=== PATIENT | male | born 1970 | race African-American/Black ===

== ENCOUNTER 2016-08-15 21:07 | Emergency (ER) | payer OTHER ==
[~2016-08-15] VITALS: Ht 175.3 cm; Wt 74.8 kg
[2016-08-15 21:12] VITALS: BP 140/84
--- NOTE | 2016-08-15 21:22 | NUR ---
Dr. Gamboa evaluating patient
--- NOTE | 2016-08-15 21:27 | NUR ---
PT [facility] BLS. TAKEN TO BED 7
--- NOTE | 2016-08-15 21:40 | NUR ---
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 DENIES N/V/D; SKIN IS PINK/WARM/DRY; AAOX4 WITH EVEN AND STEADY GAIT; LUNGS CLEAR BL; HR EVEN AND REGULAR; PT DENIES ANY FEVER, CP, SOB, OR COUGH AT THIS TIME; PATIENT STATES PAIN OF 0/10 AT THIS TIME; VSS; PATIENT POSITIONED FOR COMFORT; HOB ELEVATED; BEDRAILS UP X2; BED DOWN. ER MD MADE AWARE OF PT STATUS.
[2016-08-15 21:58] LABS: BASOPHILS # (AUTO) 0.1 K/uL (0.00-0.22); BASOPHILS % (AUTO) 1.8 % (0.0-2.0); EOSINOPHILS # (AUTO) 0.1 K/uL (0-0.4); EOSINOPHILS % (AUTO) 1.4 % (0.0-4.0); HEMATOCRIT 39.6 % (36-52); HEMOGLOBIN 12.9 g/dL (12.0-18.0); LYMPHOCYTES # (AUTO) 2.4 K/uL (2.0-11.5); LYMPHOCYTES % (AUTO) 29.8 % (20.5-51.1); MEAN CORPUSCULAR HEMOGLOBIN 28 pg (27-31); MEAN CORPUSCULAR HGB CONC 33 g/dL (33-37); MEAN CORPUSCULAR VOLUME 85 fL (80-94); MONOCYTES # (AUTO) 0.5 K/uL (0.8-1.0); MONOCYTES % (AUTO) 5.8 % (1.7-9.3); NEUTROPHILS % (AUTO) 61.2 % (42.2-75.2); PLATELET COUNT (AUTO) 341 K/uL (140-450); RED BLOOD CELL COUNT(AUTO) 4.63 MIL/uL (4.20-6.10); RED CELL DISTRIBUTION WIDTH 12.4 % (11.6-13.7); WHITE BLOOD COUNT (AUTO) 8.1 K/uL (4.8-10.8)
[2016-08-15 22:00] LABS: AMPHETAMINE, URINE NEG. ng/ml (NEG <=1000); BARBITURATE, URINE NEG. ng/ml (NEG <=200); BENZODIAZEPINE, URINE NEG. ng/mL (NEG <=200); CANNABINOID, URINE NEG. ng/mL (NEG <=50); COCAINE, URINE NEG. ng/mL (NEG <=300); OPIATE, URINE NEG. ng/mL (NEG <=2000); PHENCYCLIDINE SCREEN,URINE NEG. ng/mL (NEG <=25)
[2016-08-15 22:01] LABS: ANION GAP 11.4 (8-16); CALCIUM 9.2 mg/dL (8.5-10.1); CARBON DIOXIDE 28.9 mmol/L (21-32); CHLORIDE 103 mmol/L (98-107); GFR ARICAN-AMERICAN 104 mL/min (>90); GFR NON ARICAN-AMERICAN 86 mL/min (>90); GLUCOSE 100 mg/dL (74-106); POTASSIUM 4.3 mmol/L (3.5-5.1); SODIUM SERUM 139 mmol/L (136-145); UREA NITROGEN, BLOOD 16 mg/dL (7-18)
[2016-08-15 22:07] LABS: ACETAMINOPHEN < 0.5 ug/ml (10-30); ALANINE AMINOTRANSFERASE 33 U/L (16-63); ALBUMIN 3.2 g/dL (3.4-5.0); ALCOHOL, BLOOD < 3 mg/dL (<3); ALKALINE PHOSPHATASE 67 U/L (46-116); ASPARTATE AMINOTRANSFERASE 17 U/L (15-37); INR 1.1 (0.8-1.2); SALICYLATE < 2.8 mg/dL (2.8-20.0); TOTAL BILIRUBIN 0.2 mg/dL (0.0-1.0); TOTAL PROTEIN, SERUM 8.8 g/dL (6.4-8.2)
--- NOTE | 2016-08-15 23:11 | NUR ---
PT APPEARS TO BE RESTING COMFORTABLY IN THE BED, CALM NO SOB NOTED. WILL CONTINUE TO CLOSELY MONITOR.
--- NOTE | 2016-08-16 00:44 | NUR ---
PT APPEARS TO BE RESTING IN BED. PT DENIES ANY DISCOMFORT. PT IS CALM, COOPERATIVE. NO SOB NOTED. WILL CONTINUE TO MONITOR.
--- NOTE | 2016-08-16 02:07 | NUR ---
PT APPEARS TO BE RESTING IN BED. NO SOB NOTED AT THIS TIME. WILL CONTINUE TO MONITOR.
--- NOTE | 2016-08-16 03:34 | NUR ---
Patient appears to be resting comfortably in bed. Vital Signs within normal limits. Respirations even and unlabored.
--- NOTE | 2016-08-16 03:59 | NUR ---
SPOKE WITH EDIN PARKER FROM [facility]. REPORT GIVEN ABOUT PATIENT. PER ELENA SHE STATED THAT HE IS OK TO BE PLACED IN [facility] [place]. WILL GO TO UN[address] BE SEEN BY DR WORTHINGTON.
--- NOTE | 2016-08-16 04:00 | NUR ---
Patient to be transferred to [facility]. Is being transferred due to PSYCH FACILITY. Receiving facility has accepting physician and available space. ER physician has signed transfer form. Patient or responsible green party has agreed to transfer and signed form. Patient belongings inventoried and will be sent with patient. Copy of nursing notes, lab reports, EKG, Physicians Orders and X-rays to be sent with patient. Report called to EDIN PARKER at receiving facility. [facility] ambulance service has been called for transfer. ETA is 90MIN.
[2016-08-16] MEDS ORDERED: ONDANSETRON 4 MG ODT PO ONE (04:35)
--- NOTE | 2016-08-16 05:00 | NUR ---
PT RESTING IN BED NO SOB NOTED. VITALS STABLE, CALM DENIES ANY PAIN AT THIS TIME.
[2016-08-16 05:40] VITALS: BP 119/62
--- NOTE | 2016-08-16 05:45 | NUR ---
PT TAKEN BY [facility] TRANSPORT TO [facility] UNIT 1
== END 2016-08-16 05:45 | disposition designated cancer center or children's hospital (05) ==
LOC: MED 21:07
DX: R45.851 Suicidal ideations (principal); F32.9 Major depressive disorder, single episode, unspecified
CPT/HCPCS: 36415; 80053; 80305; 81002; 85025; 85610; 99285; G0480; G0482; S0119